=== PATIENT | female | born 1990 | race Caucasian/White ===

== ENCOUNTER 2022-03-26 10:49 | Outpatient (CLI) | payer OTHER, SELFPAY ==
[2022-03-26 13:09] LABS: Cholesterol* 215 mg/dL (90-199); HDL Cholesterol* 62 mg/dL (>=50); LDL Cholesterol Calculated 132 mg/dL (<100); Triglycerides* 103 mg/dL (40-149)
[2022-03-26 13:38] LABS: TSH With Reflex to FT4* 0.521 uIU/mL (0.270-4.200)
== END 2022-03-26 10:50 | disposition home or self-care (01) ==
PROVIDERS: Visit Provider Registered Nurse
DX: Z01.419 Encounter for gynecological examination (general) (routine) without abnormal findings (principal); N92.0 Excessive and frequent menstruation with regular cycle; Z13.6 Encounter for screening for cardiovascular disorders
CPT/HCPCS: 80061; 84443

== ENCOUNTER 2022-04-11 09:52 | Outpatient (CLI) | payer OTHER, SELFPAY ==
--- NOTE | 2022-04-11 10:15 | CRLHL7_ITS ---
For Patients: As a result of the Century Cures Act, medical imaging exams and procedure reports are released immediately into your electronic medical record. You may view this report before your referring provider. If you have questions, please contact your health care provider. INDICATION: EXCESSIVE AND FREQUENT MENSTRUATION COMPARISON: none TECHNIQUE: 2D medina scale and color Doppler images were acquired of the pelvis using a transabdominal and transvaginal approach. FINDINGS: Sonographic images demonstrate a normal size and smooth outer contour of the uterus. Uterus measures 8.8 cm in length by 4.2 cm in AP diameter by 5.0 cm in transverse dimension. The myometrium has a normal uniform echotexture. The endometrial lining appears normal and measures 6 mm in composite thickness. The right ovary measures 2.8 x 2.1 x 2.0 cm in size and the left ovary measures 3.1 x 2.3 x 2.2 cm. Incidental dominant follicle left ovary. The ovaries demonstrate normal arterial and venous blood flow on color Doppler analysis. There are no suspicious fluid collections within the cul-de-sac. IMPRESSION: Normal pelvic ultrasound. Dictated by Russel Boss MD @ 04/11/2022 11:36:42 AM (Electronically Signed)
== END 2022-04-11 09:53 | disposition home or self-care (01) ==
LOC: US 09:53
PROVIDERS: Visit Provider Registered Nurse
DX: N92.0 Excessive and frequent menstruation with regular cycle (principal)
CPT/HCPCS: 76830; 76856

== ENCOUNTER 2023-12-02 09:02 | Outpatient (CLI) | payer OTHER, SELFPAY ==
--- NOTE | 2023-12-02 09:15 | US_ITS ---
Patient: KANDY ARDON Facility:?[facility] Patient ID:?[id number] Site Patient ID:?[id number]. Site :?[id number] Study:?US-OB Pelvis TV OB<14wks-12/02/2023 9:45:41 AM Ordering Physician:?Bobbi Patel Final Report: INDICATION: First trimester scan, establish dates. COMPARISON: None. TECHNIQUE: Real-time medina-scale imaging of the pelvis was performed. FINDINGS: Sonographic imaging demonstrates a single living intrauterine gestation. The embryo demonstrates a regular cardiac rate measuring 161 beats per minute. The embryo`s crown-rump length measurement of 1.9 cm corresponds to a gestational age of 8 weeks 3 days with a sonographic due date of 07/10/2024. There is a normal-appearing yolk sac. There are no gross abnormalities noted within the embryo at this early state of development. The gestational sac has a normal appearance. There is no evidence of a perigestational hemorrhage. The amount of fluid within the sac appears appropriate for gestational age. The cervix is closed. The myometrium appears normal. The ovaries are of normal size. Corpus luteal cyst left ovary. There are no suspicious fluid collections noted in the cul-de-sac. IMPRESSION: Normal first trimester OB ultrasound exam. Gestational age calculated at 8 weeks 3 days with a sonographic due date of 07/10/2024. Dictated by Russel Boss MD @ 12/02/2023 12:51:01 PM Signed by:?Russel Boss MD @12/02/2023 12:51:01 PM (Electronic Signature)
== END 2023-12-02 09:03 | disposition home or self-care (01) ==
LOC: US 09:04
PROVIDERS: Visit Provider Registered Nurse
DX: Z34.91 Encounter for supervision of normal pregnancy, unspecified, first trimester (principal); Z3A.08 8 weeks gestation of pregnancy
CPT/HCPCS: 76817

== ENCOUNTER 2023-12-02 10:15 | Outpatient (CLI) | payer OTHER, SELFPAY ==
[2023-12-02 13:20] LABS: Chlamydia DNA Amplified* NOT DETECTED (No Detected); GC DNA Amplified* NOT DETECTED (No Detected)
== END 2023-12-02 10:16 | disposition home or self-care (01) ==
PROVIDERS: Visit Provider Registered Nurse
DX: Z34.91 Encounter for supervision of normal pregnancy, unspecified, first trimester (principal)
CPT/HCPCS: 82565; 82570; 84156; 84450; 84460; 84520; 86592; 86703; 86704; 86706; 86762; 86787; 86803; 86850; 86900; 86901; 87086; 87340; 87491; 87591

== ENCOUNTER 2023-12-07 05:30 | Outpatient (CLI) | payer OTHER, SELFPAY | END 2023-12-07 05:31 | disposition home or self-care (01) | LOC: NFLDREF 12-09 10:38 | PROVIDERS: Visit Provider Registered Nurse | DX: Z34.01 Encounter for supervision of normal first pregnancy, first trimester (principal) | CPT/HCPCS: 82570; 84156 ==

== ENCOUNTER 2023-12-30 09:51 | Outpatient (CLI) | payer OTHER, SELFPAY | END 2023-12-30 09:52 | disposition home or self-care (01) | PROVIDERS: Visit Provider Registered Nurse | DX: O26.891 Other specified pregnancy related conditions, first trimester (principal); Z3A.13 13 weeks gestation of pregnancy; R79.89 Other specified abnormal findings of blood chemistry | CPT/HCPCS: 84450; 84460 ==

== ENCOUNTER 2024-04-13 08:58 | Outpatient (CLI) | payer OTHER, SELFPAY | END 2024-04-13 08:59 | disposition home or self-care (01) | LOC: NFLDREF 08:59 | PROVIDERS: Visit Provider Obstetrics & Gynecology | DX: Z34.01 Encounter for supervision of normal first pregnancy, first trimester (principal); Z67.41 Type O blood, Rh negative | CPT/HCPCS: 86592; 86850; J2791 ==

== ENCOUNTER 2024-06-08 10:13 | Outpatient (CLI) | payer OTHER, SELFPAY ==
[2024-06-09 11:57] LABS: Strep B DNA Probe POSITIVE (Negative)
[2024-06-09 12:13] LABS: Strep B Susceptibility Needed? No
== END 2024-06-08 10:14 | disposition home or self-care (01) ==
LOC: NFLDREF 10:13
PROVIDERS: Visit Provider Obstetrics & Gynecology
DX: Z34.93 Encounter for supervision of normal pregnancy, unspecified, third trimester (principal); Z3A.36 36 weeks gestation of pregnancy
CPT/HCPCS: 87081; 87653

== ENCOUNTER 2024-07-11 15:23 | Inpatient (IN) | payer OTHER, SELFPAY ==
[2024-07-11] VITALS (9 sets, daily range): BP systolic 141–165; BP diastolic 79–89; PULSE 73–92; RESP 16; TEMP 36.8–36.9; O2SAT 98–99; BMI 42.1
[2024-07-11 16:47] LABS: Basophils Percent Auto 0.1 % (0.0-3.0); Eosinophils Percent Auto 1.1 % (0.0-7.0); Hematocrit 34.4 % (33.0-51.0); Hemoglobin* 11.7 gm/dL (12.0-16.0); Immature Granulocytes Pct Auto 0.2 %; Lymphocytes Percent Auto 15.8 % (20-44); Mean Corpuscular HGB Conc 34 gm/dL (32-36); Mean Corpuscular Hemoglobin 29 pg (26-34); Mean Corpuscular Volume 86 fL (80-100); Monocytes Percent Auto 6.2 % (0.0-11.0); Neutrophils Percent Auto 76.6 % (42.0-72.0); Platelet Count* 298 K/uL (140-440); RDW Coefficient of Variation % 13.7 % (11.5-15.5); Red Blood Count 3.98 m/uL (4.00-5.20); White Blood Count* 13.97 K/uL (4.50-11.00)
[2024-07-11 16:56] LABS: Slide Review Reflex No
[2024-07-11 17:17] LABS: Aspartate Amino Transferase* 21 U/L (12-35); Blood Urea Nitrogen* 8 mg/dL (5-24); Creatinine* 0.4 mg/dL (0.5-1.5); Est. Creatinine Clearance* 189.08; Estimated Glomerular Filt Rate 131 ml/min
[2024-07-11] MEDS: miSOPROStoL 25 MCG/0.25 TABLET VAGINAL ×3 (17:18→23:29)
[2024-07-11 17:33] LABS: Alanine Aminotransferase* 11 U/L (4-35)
--- NOTE | 2024-07-11 18:04 | P.LDBA_ITS ---
Subjective History of Present Illness Time Seen by Provider: 15:50 Date Seen: 07/11/24 Narrative: Patient is being admitted to Labor and Delivery for elective induction of labor. She is a 34 year old at 40 5/7 weeks gestation. Her full history and physical was dictated by Dr. Bhat on 06/15/24. Please see this for details. She feels well today. She has been feeling occasional irregular contractions. Her fetus is active. Specific Issues/Plans G 1 P 0 Spouse: Ishmael Girl: Alyssa 1. Advanced maternal age NIPT normal, XX Level 2 ultrasound at 20 weeks 2. Tobacco use (quit at 28 weeks!). Congratulated her on decreasing. Reviewed risks of tobacco use in . Encouraged her to continue to decrease and quit. To notify us if she needs assistance with this. * As of 16 weeks, 2 cigs / day * Quit as of april!!! 3. Recommend low-dose aspirin starting at 12 weeks to reduce risk of preeclampsia due to BMI and primip. 4. Rh negative Rhogam: 04/13/2024 Covid: Completed initial vaccine, no boosters. Recommended. Declined. Tdap: 04/27/24 RSV: 06/08/24 Flu: Declines. GBS: Positive H&P: Dr. Bhat on 06/15 Ultrasound: * Level 2 ultrasound on 02/10/2024: EFW 43rd percentile, AC 55th percentile. Anterior placenta, no previa, greater than 2 cm from the internal os. Three- vessel cord. MVP 4.9 cm. Pearson intrauterine at 18 weeks 3 days gestational age. There is an echogenic intracardiac focus seen the left ventricle. Otherwise, none of the anomalies commonly detected by ultrasound were evident. [facility] did not recommend any further evaluation for the echogenic intracardiac focus in the setting of normal ultrasound and low risk cell free DNA testing. Repeat ultrasound in 3 weeks for re-evaluation of growth and anatomy due to suboptimal views. * Follow-up ultrasound completed on 03/02/2024: Remaining anatomic survey was completed, no anomalies commonly detected by ultrasound were identif ied within the limits of ultrasound. Normal growth. Normal amniotic fluid. EFW: 84th percentile, single deepest pocket of amniotic fluid 4.6 cm. OB - Problem Based A/P Additional Plan (1) Advanced maternal age, 1st : Status: Acute (2) Encounter for induction of labor: Status: Acute Delivery/Labor/Induction Plan Plan: induction Induction method: per misoprostol protocol OB Result Labs Blood Type: 0 (-) negative Rubella: immune RPR/VDLR: nonreactive GBS Status: positive HBsAG: negative OB Exam Physical Exam Vital signs: Temp Pulse BP Pulse Ox 98.3 F 82 141/83 H 99 07/11/24 15:43 07/11/24 17:31 07/11/24 17:31 07/11/24 15:48 Narrative: General appearance: Alert, cooperative white female in no acute distress Detailed Labor and Delivery Exam Patient Gravid: Yes Dilation (cm): 1 Effacement (%): 0 Cervix position: mid Consistency: firm Contraction Frequency: Occasional Contraction intensity: Mild Fetus (Single) Station: -3 Amniotic Membrane Status: intact Heart Rate Baseline: 130 Monitor Accelerations: Present Monitor Decelerations: None Sausage Canner Variability: Moderate (6-25)
[2024-07-11 18:05] LABS: Total Protein Urine 15 mg/dL
[2024-07-11 18:06] LABS: Creatinine Urine 37.8 mg/dL
[2024-07-11] MEDS: LABETALOL HCL 5 MG/ML inj IVP (23:48)
[2024-07-11] MEDS: LACTATED RINGERS 1000 ML 1,000 ML 75 ML IV (23:56)
[2024-07-11] MEDS: MAGNESIUM IV 4 GM/100 ML PIGGYBACK IVPB (23:56)
[2024-07-12] VITALS (89 sets, daily range): BP systolic 125–162; BP diastolic 65–91; PULSE 66–96; RESP 14–18; TEMP 36.5–36.9; O2SAT 98–100
[2024-07-12] MEDS: MAGNESIUM Infusion 40 GM/1,000 ML IV.SOLN IVPB ×2 (00:35→20:08)
[2024-07-12] MEDS: miSOPROStoL 25 MCG/0.25 TABLET VAGINAL ×2 (02:29→05:21)
[2024-07-12 06:26] LABS: Hematocrit 35.3 % (33.0-51.0); Hemoglobin* 12.1 gm/dL (12.0-16.0); Mean Corpuscular HGB Conc 34 gm/dL (32-36); Mean Corpuscular Hemoglobin 30 pg (26-34); Mean Corpuscular Volume 87 fL (80-100); Platelet Count* 327 K/uL (140-440); Red Blood Count 4.04 m/uL (4.00-5.20); White Blood Count* 13.86 K/uL (4.50-11.00)
[2024-07-12 06:29] LABS: Slide Review Reflex No
[2024-07-12 06:53] LABS: Creatinine* 0.5 mg/dL (0.5-1.5); Est. Creatinine Clearance* 151.26; Estimated Glomerular Filt Rate 125 ml/min
[2024-07-12 06:54] LABS: Alanine Aminotransferase* 10 U/L (4-35); Aspartate Amino Transferase* 20 U/L (12-35); Blood Urea Nitrogen* 5 mg/dL (5-24)
[2024-07-12 07:04] LABS: Magnesium* 4.3 mg/dL (1.5-2.6)
[2024-07-12] MEDS: OXYTOCIN 30 unit/500 ML in NS 30 UNIT/500 ML BAG IVPB (09:26)
[2024-07-12 12:13] LABS: Hematocrit 36.7 % (33.0-51.0); Hemoglobin* 12.6 gm/dL (12.0-16.0); Mean Corpuscular HGB Conc 34 gm/dL (32-36); Mean Corpuscular Hemoglobin 30 pg (26-34); Mean Corpuscular Volume 87 fL (80-100); Platelet Count* 389 K/uL (140-440); Red Blood Count 4.22 m/uL (4.00-5.20); White Blood Count* 16.47 K/uL (4.50-11.00)
[2024-07-12 12:17] LABS: Slide Review Reflex No
[2024-07-12] MEDS: AMPICILLIN 2 GM in 0.9 % SODIUM CHLORIDE Mini-bag 100 ML IVPB (12:44)
[2024-07-12] MEDS: LACTATED RINGERS 1000 ML 1,000 ML 75 ML IV ×2 (13:37→19:08)
[2024-07-12 15:07] LABS: Alanine Aminotransferase* 20 U/L (4-35); Aspartate Amino Transferase* 35 U/L (12-35); Blood Urea Nitrogen* 6 mg/dL (5-24); Creatinine* 0.7 mg/dL (0.5-1.5); Est. Creatinine Clearance* 108.04; Estimated Glomerular Filt Rate 115 ml/min
[2024-07-12] MEDS: AMPICILLIN 1 GM in 0.9 % SODIUM CHLORIDE Mini-bag 100 ML IVPB ×2 (16:42→20:42)
[2024-07-12 18:27] LABS: Hematocrit 37.7 % (33.0-51.0); Hemoglobin* 12.7 gm/dL (12.0-16.0); Mean Corpuscular HGB Conc 34 gm/dL (32-36); Mean Corpuscular Hemoglobin 29 pg (26-34); Mean Corpuscular Volume 87 fL (80-100); Platelet Count* 370 K/uL (140-440); Red Blood Count 4.33 m/uL (4.00-5.20); White Blood Count* 20.56 K/uL (4.50-11.00)
--- NOTE | 2024-07-12 18:35 | PM.OBPNL ---
Subjective Time Seen by Provider: 09:00 Date Seen: 07/12/24 Narrative: Simran has had several doses of vaginal misoprostol overnight. She has no complaints. Objective Exam: Gen - NAD Abd - Soft, NT, gravid Cervical exam - 1 / 70 / -1 / midposition / firm Vital Signs: Last Vital Signs Temp 98.1 F 07/12/24 18:00 Pulse 75 07/12/24 17:01 Resp 18 07/12/24 18:00 BP 140/83 H 07/12/24 17:01 Pulse Ox 99 07/12/24 17:00 Comments: tracing: Baseline 125 / accels present / no decels / moderate variability. Irregular contractions Contractions Contraction intensity: Mild Assessment Station: -3 Status: Category l Heart Rate Baseline: 125 Monitor Accelerations: Present Monitor Decelerations: None Tracing Comments: Category I GBS positive Labor Progress: Less unfavorable than last night, but cervix dilated to 1 cm at this time Maternal Status: Preeclampsia with severe features based on BP criteria. Maintained on mag sulfate. HELLP labs normal. Plan Plan: Cook catheter placed using asceptic technique; intrauterine and vaginal balloons inflated to 60 cc. Begin pitocin infusion at 1 mU / min, increase every 30 minutes Begin ampicillin for GBS prophylaxis Continuous monitoring HELLP labs Q 6 hours Continue mag influsion
[2024-07-12 18:40] LABS: Slide Review Reflex No
--- NOTE | 2024-07-12 18:42 | PM.OBPNL ---
Subjective Time Seen by Provider: 17:45 Date Seen: 07/12/24 Narrative: Simran just had the Cook catheter fall out. I Objective Exam: Gen - NAD Cervix - 3 / 90 / -1 / anterior / moderate AROM for blood-tinged fluid Vital Signs: Last Vital Signs Temp 98.1 F 07/12/24 18:00 Pulse 75 07/12/24 17:01 Resp 18 07/12/24 18:00 BP 140/83 H 07/12/24 17:01 Pulse Ox 99 07/12/24 17:00 Comments: tracing: baseline 125 / accels present / no decels / moderate variability Contractions primarily Q 3 minutes Contractions Contraction intensity: Mild Assessment Station: -3 Status: Category l Heart Rate Baseline: 125 Monitor Accelerations: Present Monitor Decelerations: None Tracing Comments: Category I GBS + Labor Progress: Now favorable cervix. Maternal Status: Stable BP on magnesium sulfate. Stable HELLP labs Plan Plan: continue pitocin augmentation Epidural as desired Continuous monitoring Continue ampicillin Continue mag sulfate influsion Continue serial HELLP labs
[2024-07-12 18:49] LABS: Magnesium* 5.1 mg/dL (1.5-2.6)
[2024-07-12] MEDS: ROPIVACAINE 0.2% 100 ml 100 ML 12 MG EPIDURAL (19:31)
[2024-07-12] MEDS: BUPIVACAINE 0.25% PF 10 ML 10 ML ML EPIDURAL (19:32)
[2024-07-12 19:34] LABS: Alanine Aminotransferase* 19 U/L (4-35); Aspartate Amino Transferase* 40 U/L (12-35); Blood Urea Nitrogen* 6 mg/dL (5-24); Creatinine* 0.5 mg/dL (0.5-1.5); Est. Creatinine Clearance* 151.26; Estimated Glomerular Filt Rate 125 ml/min
[2024-07-12 19:36] LABS: Magnesium* 5.4 mg/dL (1.5-2.6)
--- NOTE | 2024-07-12 19:40 | P.ANBPRC_ITS ---
[facility] Medical History Motion sickness ?T75.3XXA - Motion sickness, initial encounter (ICD-10) Nicotine use ?Z72.0 - Tobacco use (ICD-10) Menorrhagia ?N92.0 - Excessive and frequent menstruation with regular cycle (ICD-10) History of abnormal cervical Papanicolaou smear (2013) ?Z87.42 - Personal history of other diseases of the female genital tract (ICD-10) Surgical History History of third molar tooth extraction ?K08.409 - Partial loss of teeth, unspecified cause, unspecified class (ICD- 10) Family History Father Alcohol abuse High blood pressure Aunt Breast cancer, Onset Age: 49 Maternal Grandmother Gallbladder cancer Maternal Grandfather Leukemia Paternal Grandmother Lung cancer Family/Other Alcohol abuse Mother TIA (transient ischemic attack) 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. . Tobacco use. What is your current living situation?: I presently have a place to live Problems where you live: no known problems In the past 12 months, utilities in danger of being shut off: no In the past 12 mos, have been you worried that your food would run out before you had money to buy more?: never true In the past 12 mos, the food you bought just didn't last and you didn't have money to buy more?: never true Smoking Status: Former smoker How often does anyone, including family, friends and others, physically hurt you : never How often does anyone, including family, friends and others, insult or talk down to you: never How often does anyone, including family, friends and others, threaten you with harm: never How often does anyone, including family, friends and others, scream or curse at you: never Meds Home Medications and Allergies Home Medications ?Medication ?Instructions ?Recorded ?Confirmed ?Type ascorbic acid (vitamin C) 1,000 mg 1 g PO Q6H 12/02/23 07/11/24 History capsule calcium 600 mg (as cap PO 12/02/23 07/06/24 History carbonate)-vitamin D3 12.5 mcg (500 unit) capsule (Calcium with Vit D3) cholecalciferol (vitamin D3) 50 50 mcg PO QDAY 12/02/23 07/11/24 History mcg (2,000 unit) capsule docosahexaenoic acid 200 mg mg PO 12/02/23 07/06/24 History capsule ( DHA) aspirin 81 mg capsule 81 mg PO QDAY 12/30/23 07/11/24 History polysaccharide iron complex 200 mg 200 mg PO QDAY 03/16/24 07/11/24 History iron capsule (EZFE 200) naproxen 500 mg tablet,delayed 500 mg PO BID PRN 07/06/24 07/11/24 History release Allergies Allergy/AdvReac Type Severity Reaction Status Date / Time hydrocodone (From [place]) AdvReac Intermediate n/v Verified 07/06/24 09:11 Results Labs Labs: Laboratory Results - last 24 hr 07/12/24 07/12/24 07/12/24 06:11 06:11 06:11 WBC 13.86 H RBC 4.04 Hgb 12.1 Hct 35.3 MCV 87 MCH 30 MCHC 34 Plt Count 327 BUN Cancelled 5 Creatinine Cancelled 0.5 Estimated Creat Clear Cancelled Estimated GFR Magnesium AST ALT 07/12/24 07/12/24 07/12/24 06:11 06:11 06:11 WBC RBC Hgb Hct MCV MCH MCHC Plt Count BUN Creatinine Estimated Creat Clear 151.26 Estimated GFR Cancelled 125 Magnesium 4.3 H* Cancelled AST Cancelled ALT 07/12/24 07/12/24 07/12/24 06:11 06:11 12:02 WBC 16.47 H RBC 4.22 Hgb 12.6 Hct 36.7 MCV 87 MCH 30 MCHC 34 Plt Count 389 BUN 6 Creatinine 0.7 Estimated Creat Clear 108.04 Estimated GFR 115 Magnesium 5.1 H* AST 20 35 ALT Cancelled 10 20 07/12/24 18:15 WBC 20.56 H RBC 4.33 Hgb 12.7 Hct 37.7 MCV 87 MCH 29 MCHC 34 Plt Count 370 BUN 6 Creatinine 0.5 Estimated Creat Clear 151.26 Estimated GFR 125 Magnesium 5.4 H* AST 40 H ALT 19 Vital Signs Vital Signs: Last Vital Signs Temp 98.5 F 07/12/24 19:28 Pulse 77 07/12/24 19:40 Resp 18 07/12/24 18:00 BP 155/73 H 07/12/24 19:40 Pulse Ox 100 07/12/24 19:37 Weight: 120.293 kg Height: 170.18 cm Anesthesia Procedures Epidural Insertion Patient Location: OB Start Time: 18:45 Stop Time: 19:41 Start Date: 07/12/24 Stop Date: 07/12/24 Reason for Block: procedure for pain Patient Position: sitting Performed By: Ajit Caballero Preanesthetic Checklist: IV checked, risks and benefits discussed, monitors and equipment checked, pre-op evaluation, timeout performed and anesthesia consent Prep: chlorhexidine gluconate Monitoring: blood pressure monitoring, continuous pulse oximetry and heart rate Approach: midline Vertebral Space: lumbar (1-5) Epidural Technique: KESHA saline Needle Type: Tuohy needle Injection Technique: continuous catheter Needle gauge: 17 Needle Length (cm): 10 cm Needle Insertion Depth (cm): 6 Catheter Gauge: 19 Catheter Type: multi-orifice Catheter at skin depth (cm): 12 Test Dose Result: negative (Heme aspirated, HR change of 20 points, lightheaded with 1st epidural placement. Catheter removed. Pt symptoms resolved before a new epidural was placed. No heme and negative test dose with 2nd epidural. ) and lidocaine 1.5% with epinephrine 1 to 200,000
[2024-07-13] VITALS (56 sets, daily range): BP systolic 113–173; BP diastolic 67–94; PULSE 75–105; RESP 16–18; TEMP 36.6–37.2; O2SAT 96–100
[2024-07-13] MEDS: AMPICILLIN 1 GM in 0.9 % SODIUM CHLORIDE Mini-bag 100 ML IVPB ×2 (01:16→05:15)
[2024-07-13 01:22] LABS: Hematocrit 36.1 % (33.0-51.0); Hemoglobin* 12.1 gm/dL (12.0-16.0); Mean Corpuscular HGB Conc 34 gm/dL (32-36); Mean Corpuscular Hemoglobin 29 pg (26-34); Mean Corpuscular Volume 88 fL (80-100); Platelet Count* 319 K/uL (140-440); Red Blood Count 4.11 m/uL (4.00-5.20)
[2024-07-13 01:29] LABS: Slide Review Reflex No
[2024-07-13 01:38] LABS: Alanine Aminotransferase* 16 U/L (4-35); Aspartate Amino Transferase* 31 U/L (12-35); Blood Urea Nitrogen* 8 mg/dL (5-24); Creatinine* 0.7 mg/dL (0.5-1.5); Est. Creatinine Clearance* 108.04; Estimated Glomerular Filt Rate 115 ml/min
[2024-07-13 03:05] LABS: Magnesium* 6.2 mg/dL (1.5-2.6)
[2024-07-13] MEDS: ROPIVACAINE 0.2% 100 ml 100 ML 10 MG EPIDURAL (04:30)
[2024-07-13] MEDS: ACETAMINOPHEN 500 MG TABLET 1000 MG PO (04:45)
[2024-07-13 07:41] LABS: Magnesium* 6.4 mg/dL (1.5-2.6)
--- NOTE | 2024-07-13 08:30 | PM.OBPNL ---
Subjective Time Seen by Provider: 07:30 Date Seen: 07/13/24 Narrative: Simran is a 34yo at 41w0d GA who was admitted for elective IOL. Hospital course notable for new diagnosis of preE with SF (severe range BP requiring treatment), where magnesium sulfate has been ongoing. Serial HELLP labs have remained within normal limits, no long acting antihypertensive regimen has been required. IOL course has included cytotec, cook catheter, pitocin and AROM. Last check at 0530 was 9cm. Simran affirms the above history. She is feeling woozy from magnesium, but denies headache, vision changes or RUQ pain. Pain is well controleld with epidural. Objective Exam: General: Alert and oriented, in no acute distress Psych: Appropriate mood and affect Abdomen: Gravid. Non-tender. Cervix: 10/100/+2, MICHELL. FHR: Category 1: Baseline 130bpm, moderate variability, accelerations present. No decelerations at this time, previously there were periods of intermittent to recurrent variables or lates. Mather: [place] q3m per RN/patient report. These are not readily apparent by toco. Vital Signs: Last Vital Signs Temp 98.4 F 07/13/24 05:39 Pulse 85 07/13/24 08:03 Resp 16 07/13/24 05:39 BP 148/73 H 07/13/24 08:03 Pulse Ox 100 07/12/24 20:52 Contractions Contraction intensity: Mild Assessment Station: -3 Status: Category l Heart Rate Baseline: 125 Monitor Accelerations: Present Monitor Decelerations: None Plan Plan: - Initiate maternal expulsive efforts - Modify pitocin titration (2mu/min at this time) pending contraction frequency - Remove miller catheter - BT O negative, plan cord blood at time of delivery - GBS positive, adequately treated with ampicillin
[2024-07-13] MEDS: LACTATED RINGERS 1000 ML 1,000 ML 75 ML IV ×2 (09:13→23:57)
[2024-07-13] MEDS: LABETALOL HCL 5 MG/ML inj IVP (10:47)
--- NOTE | 2024-07-13 12:21 | W.PM.VAGDEL1 ---
Procedure Delivery date: 07/13/24 Procedure Done: Global Procedure Details: Normal spontaneous vaginal delivery Vaginal and right labial laceration repair Events: Pre-Eclampsia, Labor Induction, AMA and Other (Late term gestation, obesity) Intrapartal Events: Labor Induction Delivery augmentation: rupture of membranes and pitocin Delivery monitor: external FHT Route of delivery: Laceration description: Labial (R labial and minor vaginal lacerations) Delivery repair: Vicryl (3-0 vicryl for vaginal laceration, 4-0 vicryl for right labial laceration) Estimated blood loss (mL): 125 Anesthesia type: Epidural Disposition: floor Complications: None Narrative: Gina is a 34yo at 41w0d GA who was admitted for elective IOL on 07/10/24. Throughout her induction, she developed preeclampsia with severe features. was otherwise complicated by late term gestation, AMA, obesity. heart tones on admission were category 1. Her labor was induced with Cytotec then Cook catheter and epidural was utilized for pain management. She was augmented with Pitocin. Status of bag of canela: AROM performed with return of blood-tinged fluid with thin meconium noted later. heart tones during active labor were category 1 and 2. She was complete at 0734 and started pushing at 0801. She made excellent descent throughout the second stage of labor, and had a normal spontaneous vaginal delivery at 1013. heart tones during second stage of labor were category 2 for intermittent variable decelerations with appropriate improvement to baseline between pushing efforts. Maternal repositioning was utilized throughout the 2nd stage to optimize heart tone. Baby delivered OA, restituted WENDIE and the anterior and posterior shoulders delivered without difficulty. Nuchal cord: None. The cord was clamped and cut after delayed cord clamping. Active management of the third stage occurred with IV pitocin and gentle cord traction and the placenta delivered spontaneous and intact at 1020. Cord gases sent: no Cord blood sent for infant ABO: yes details: - Liveborn female fetus at 1013 - weight 3130g - APGARs were 7 and 9 at 1 and 5 minutes respectively Perineum and vagina were inspected, and the following lacerations were noted: Minor vaginal laceration and right labial laceration. Repair was completed in the usual fashion with running/locking 3-0 Vicryl for the vaginal laceration. The right labial anatomy was 1st reapproximated with 2 interrupted sutures with 4-0 Vicryl. The skin was then closed in a running subcuticular fashion with 4-0 Vicryl. Repair was completed under existing epidural analgesia. Excellent hemostasis was noted. The following counts were correct: sponges, needles, instruments. Mother and infant in stable condition following the . Infant Gender: Female total score - 1 minute: 7 total score - 5 minute: 9
[2024-07-13] MEDS: IBUPROFEN 600 MG TABLET PO ×2 (13:26→20:16)
[2024-07-13] MEDS: NIFEdipine 30 MG TAB.ER.24 PO (14:00)
[2024-07-13 14:23] LABS: Hematocrit 35.1 % (33.0-51.0); Hemoglobin* 11.8 gm/dL (12.0-16.0); Mean Corpuscular HGB Conc 34 gm/dL (32-36); Mean Corpuscular Hemoglobin 29 pg (26-34); Mean Corpuscular Volume 88 fL (80-100); Platelet Count* 351 K/uL (140-440); Red Blood Count 4.01 m/uL (4.00-5.20)
[2024-07-13 14:30] LABS: Slide Review Reflex No; White Blood Count* 25.28 K/uL (4.50-11.00)
[2024-07-13 14:38] LABS: Alanine Aminotransferase* 28 U/L (4-35); Aspartate Amino Transferase* 49 U/L (12-35); Blood Urea Nitrogen* 7 mg/dL (5-24)
[2024-07-13 15:32] LABS: Creatinine* 0.6 mg/dL (0.5-1.5); Est. Creatinine Clearance* 126.05; Estimated Glomerular Filt Rate 119 ml/min
[2024-07-13 15:39] LABS: Magnesium* 6.3 mg/dL (1.5-2.6)
[2024-07-13] MEDS: MAGNESIUM Infusion 40 GM/1,000 ML IV.SOLN IVPB (16:08)
[2024-07-13] MEDS: ENOXAPARIN 40 MG/0.4 ML INJ SUBCUT (17:52)
[2024-07-13 20:12] LABS: Hemoglobin* 11.3 gm/dL (12.0-16.0); Mean Corpuscular HGB Conc 34 gm/dL (32-36); Mean Corpuscular Hemoglobin 30 pg (26-34); Mean Corpuscular Volume 87 fL (80-100); Platelet Count* 366 K/uL (140-440); Red Blood Count 3.78 m/uL (4.00-5.20)
[2024-07-13 20:20] LABS: Slide Review Reflex No
[2024-07-13 20:34] LABS: Alanine Aminotransferase* 20 U/L (4-35); Aspartate Amino Transferase* 43 U/L (12-35); Blood Urea Nitrogen* 9 mg/dL (5-24); Creatinine* 0.7 mg/dL (0.5-1.5); Est. Creatinine Clearance* 108.04; Estimated Glomerular Filt Rate 115 ml/min
[2024-07-14] VITALS (7 sets, daily range): BP systolic 119–149; BP diastolic 74–81; PULSE 78–92; RESP 14–18; TEMP 36.8; O2SAT 97–98
[2024-07-14 02:02] LABS: Rapid Plasma Reagin (RPR) Non Reactive (Non Reactive)
[2024-07-14 02:03] LABS: Hematocrit 30.6 % (33.0-51.0); Hemoglobin* 10.5 gm/dL (12.0-16.0); Mean Corpuscular HGB Conc 34 gm/dL (32-36); Mean Corpuscular Hemoglobin 30 pg (26-34); Mean Corpuscular Volume 88 fL (80-100); Platelet Count* 302 K/uL (140-440); Red Blood Count 3.49 m/uL (4.00-5.20); White Blood Count* 17.32 K/uL (4.50-11.00)
[2024-07-14 02:04] LABS: Slide Review Reflex No
[2024-07-14 02:24] LABS: Alanine Aminotransferase* 15 U/L (4-35); Aspartate Amino Transferase* 34 U/L (12-35); Creatinine* 0.6 mg/dL (0.5-1.5); Est. Creatinine Clearance* 126.05; Estimated Glomerular Filt Rate 119 ml/min
[2024-07-14 02:25] LABS: Blood Urea Nitrogen* 9 mg/dL (5-24)
[2024-07-14] MEDS: IBUPROFEN 600 MG TABLET PO ×3 (02:32→21:07)
[2024-07-14 07:55] LABS: Hematocrit 30.5 % (33.0-51.0); Hemoglobin* 10.3 gm/dL (12.0-16.0); Mean Corpuscular HGB Conc 34 gm/dL (32-36); Mean Corpuscular Hemoglobin 30 pg (26-34); Mean Corpuscular Volume 88 fL (80-100); Platelet Count* 310 K/uL (140-440); Red Blood Count 3.47 m/uL (4.00-5.20); White Blood Count* 15.03 K/uL (4.50-11.00)
[2024-07-14 07:56] LABS: Slide Review Reflex No
--- NOTE | 2024-07-14 07:56 | PM.OBPNVD1 ---
OB - PN:Subj Subjective Time Seen by Provider: 07:56 Date Seen: 07/14/24 Patient comments OB post-: pain well controlled, tolerating diet and flatus present status: and NICU feeding status: exclusively Narrative: Gina is doing well day 1 from a vaginal delivery. She states her pain is well controlled. She is looking for to having this magnesium off because it is making her feel very groggy. is going well. Her blood pressures have been under good control on nifedipine 30 mg daily. All of her preeclampsia labs have been normal. OB - PN: Obj Exam Physical Exam: Vital signs: Temp Pulse Resp BP Pulse Ox O2 Del Method 98.5 F 91 17 120/74 97 Room Air 07/13/24 20:08 07/13/24 23:58 07/14/24 06:20 07/14/24 06:20 07/13/24 20:08 07/14/24 06:20 Narrative: General: Pleasant, , well groomed woman in no acute distress. Vital signs: Included in her electronic medical record. Heart: Regular rate and rhythm without gallop, rub or murmur. Chest: Clear to auscultation bilaterally. Abdomen: Soft, nontender, nondistended with normal bowel sounds throughout. Fundus is firm at 1 cm below the umbilicus in the midline. Extremities: No pain, 1+ bilateral lower extremity edema to the ankle. OB - PN: Obj Data Labs Labs: Laboratory Results - last 24 hr 07/11/24 07/13/24 07/13/24 16:39 14:16 20:00 WBC 25.28 H* 22.40 H RBC 4.01 3.78 L Hgb 11.8 L 11.3 L Hct 35.1 33.0 MCV 88 87 MCH 29 30 MCHC 34 34 Plt Count 351 366 BUN 7 9 Creatinine 0.6 Cancelled Estimated Creat Clear 126.05 Estimated GFR 119 Magnesium 6.3 H* AST 49 H ALT 28 RPR Screen Non Reactive 07/13/24 07/13/24 07/13/24 20:00 20:00 20:00 WBC RBC Hgb Hct MCV MCH MCHC Plt Count BUN Creatinine 0.7 Estimated Creat Clear Cancelled 108.04 Estimated GFR Cancelled 115 Magnesium AST 43 H ALT 20 RPR Screen 07/14/24 01:55 WBC 17.32 H RBC 3.49 L Hgb 10.5 L Hct 30.6 L MCV 88 MCH 30 MCHC 34 Plt Count 302 BUN 9 Creatinine 0.6 Estimated Creat Clear 126.05 Estimated GFR 119 Magnesium AST 34 ALT 15 RPR Screen OB - PN: A/P Delivery Assessment and Plan (1) Advanced maternal age, 1st : Status: Acute (2) Severe preeclampsia: Status: Acute Plan 1. Discontinue magnesium sulfate 24 hours after delivery. 2. All preeclampsia labs have been normal so will likely not check additional labs after her magnesium is discontinued. 3. Planning discharge home tomorrow. 4. Continue nifedipine ER 30 mg daily for blood pressure control.
[2024-07-14 08:10] LABS: Alanine Aminotransferase* 12 U/L (4-35); Blood Urea Nitrogen* 7 mg/dL (5-24)
[2024-07-14 08:22] LABS: Aspartate Amino Transferase* 27 U/L (12-35)
[2024-07-14 08:27] LABS: Creatinine* 0.6 mg/dL (0.5-1.5); Est. Creatinine Clearance* 126.05; Estimated Glomerular Filt Rate 119 ml/min
[2024-07-14] MEDS: DOCUSATE SODIUM 100 MG CAPSULE PO (08:36)
[2024-07-14] MEDS: NIFEdipine 30 MG TAB.ER.24 PO ×2 (08:36→18:50)
--- NOTE | 2024-07-14 13:21 | PM.ANPOST ---
Post Anesthesia Note Post Anesthesia Note Patient seen: Inpatient Respiratory Status: adequate Cardiovascular Status: adequate Mental Status: baseline Pain: adequate Temp: baseline Anesthetic awareness: N/A Complications: none Follow care: none
[2024-07-14 14:31] LABS: Hematocrit 32.4 % (33.0-51.0); Hemoglobin* 10.8 gm/dL (12.0-16.0); Mean Corpuscular HGB Conc 33 gm/dL (32-36); Mean Corpuscular Hemoglobin 30 pg (26-34); Mean Corpuscular Volume 89 fL (80-100); Platelet Count* 350 K/uL (140-440); Red Blood Count 3.64 m/uL (4.00-5.20)
[2024-07-14 14:36] LABS: Slide Review Reflex No
[2024-07-14 14:46] LABS: Alanine Aminotransferase* 13 U/L (4-35); Aspartate Amino Transferase* 30 U/L (12-35); Blood Urea Nitrogen* 8 mg/dL (5-24)
[2024-07-14 14:54] LABS: Creatinine* 0.6 mg/dL (0.5-1.5); Est. Creatinine Clearance* 126.05; Estimated Glomerular Filt Rate 119 ml/min
[2024-07-14] MEDS: ENOXAPARIN 40 MG/0.4 ML INJ SUBCUT (17:31)
[2024-07-14] MEDS: ACETAMINOPHEN 500 MG TABLET 1000 MG PO (21:07)
[2024-07-15 01:08] VITALS: BP 126/78; PULSE 74; RESP 16; TEMP 36.8; O2SAT 98
[2024-07-15 04:08] VITALS: BP 132/83; PULSE 86; RESP 16; TEMP 36.6; O2SAT 98
[2024-07-15] MEDS: ACETAMINOPHEN 500 MG TABLET 1000 MG PO ×2 (04:09→10:30)
[2024-07-15] MEDS: IBUPROFEN 600 MG TABLET PO ×2 (04:10→10:31)
[2024-07-15 06:30] LABS: Hematocrit 30.5 % (33.0-51.0); Hemoglobin* 10.1 gm/dL (12.0-16.0); Mean Corpuscular HGB Conc 33 gm/dL (32-36); Mean Corpuscular Hemoglobin 29 pg (26-34); Mean Corpuscular Volume 89 fL (80-100); Platelet Count* 336 K/uL (140-440); Red Blood Count 3.43 m/uL (4.00-5.20); Slide Review Reflex No; White Blood Count* 11.19 K/uL (4.50-11.00)
[2024-07-15 07:50] VITALS: BP 127/77; PULSE 76; RESP 16; TEMP 36.6; O2SAT 98
[2024-07-15 08:32] LABS: Aspartate Amino Transferase* 31 U/L (12-35); Creatinine* 0.5 mg/dL (0.5-1.5); Est. Creatinine Clearance* 151.26; Estimated Glomerular Filt Rate 125 ml/min
[2024-07-15 08:33] LABS: Alanine Aminotransferase* 13 U/L (4-35); Blood Urea Nitrogen* 9 mg/dL (5-24)
[2024-07-15] MEDS: NIFEdipine 30 MG TAB.ER.24 PO (09:17)
[2024-07-15] MEDS: DOCUSATE SODIUM 100 MG CAPSULE PO (09:17)
--- NOTE | 2024-07-15 09:26 | P.DS_ITS ---
DS: Providers Provider Time Seen by Provider: 09: Date Seen: 07/15/24 Date of admission: 07/11/24 15:23 Primary care physician: Not a Local Provider Admitting Clinician: Nell Esteban MD Attending Physician on discharge: Nell Esteban MD Date of Discharge: 07/15/24 DS: Diagnosis Discharge Diagnosis (1) Severe preeclampsia: Status: Acute Exam Narrative: Exam Narrative: Physical exam: General: No acute distress Psych: Alert and oriented x4, full affect HEENT: Normocephalic, atraumatic Heart: Regular rate and rhythm, no murmur rub or gallop Lungs: Clear to auscultation bilaterally Abdomen: Normoactive bowel sounds, soft, no tenderness, rebound, or guarding. Uterus 2 cm below umbilicus and firm. Skin: No lesions or rashes Breasts: no nodules or masses, no nipple discharge, no axillary adenopathy Lower extremities: No edema or erythema Pelvic exam: Scant blood on pad Const: Vital Signs, click to edit/add: Vital Signs - 24 hr 07/14/24 10:15 07/14/24 14:11 07/14/24 18:20 Temperature 98.2 F Pulse Rate [Pulse Oximeter] 86 79 92 Respiratory Rate 16 16 16 Blood Pressure [Ri ght Arm] 134/81 127/78 149/79 H Pulse Oximetry 97 98 98 Oxygen Delivery Me thod Room Air Room Air Room Air 07/14/24 21:00 07/15/24 01:08 07/15/24 04:08 Temperature 98.2 F 98.2 F 97.9 F Pulse Rate [Pulse Oximeter] 78 74 86 Respiratory Rate 16 16 16 Blood Pressure [Ri ght Arm] 136/80 126/78 132/83 Pulse Oximetry 98 98 98 Oxygen Delivery Me thod Room Air Room Air Room Air 07/15/24 07:50 Temperature 97.9 F Pulse Rate [Pulse Oximeter] 76 Respiratory Rate 16 Blood Pressure [Ri ght Arm] 127/77 Pulse Oximetry 98 Oxygen Delivery Me thod Room Air OB - DS: Summary Hospital Course Hospital Course: The patient is a 34 year old at 41.0 weeks gestation that was admitted to the Center on 07/11/24 for IOL. She had an uncomplicated vaginal delivery. She delivered a viable female . She is breast feeding. She developed preeclampsia with severe features during her induction. She is now status post 24 hours of magnesium sulfate and an additional 24 hours of monitoring after discontinuation of magnesium. BP well controlled on PO nifedipine XL 30 mg Overnight patient had no complaints. Her pain is well controlled on oral pain medications. She is tolerating a regular diet. She has passed flatus. She is ambulating without difficulty. Lochia is scant. She is urinating without miller. Patient denies chest pain, SOB, n/v, headache, RUQ pain, vision changes, dizziness. PreE labs stable. Stable and appropriate for discharge on PPD#2 with close follow up for BP check. Gender: Female Time Spent with Patient Time attestation: Total time spent providing and/or coordinating discharge services: Discharge Plan Discharge Disposition: Home, Self-Care Date of Admission: 07/11/24 15:23 Attending Provider on Discharge: Kira Bhat Primary Care Provider: Provider,Not a Local Condition: Stable Anticipated Discharge Date/Time: 07/15/24 09:26 Discharge Medications: New Dermoplast (with menthol) 20-0.5 % Aerosol 1 spray topical QID PRN42 Days Qty: 78 1RF acetaminophen 500 mg Tablet 1,000 mg PO Q6H PRN30 Days Qty: 60 0RF calcium carbonate 200 mg calcium (500 mg) Tablet,Chewable 1,000 - 2,000 mg PO Q2H PRN30 Days Qty: 60 0RF docusate sodium 100 mg Capsule 100 mg PO DAILY 30 Days Qty: 30 0RF ibuprofen 600 mg Tablet 600 mg PO Q6H PRN30 Days Qty: 60 0RF Lanolin (HPA) 100 % Cream 1 applic topical Q1H PRNQty: 21 0RF nifedipine 30 mg Tablet Extended Release 24hr 30 mg PO BID 45 Days Qty: 90 0RF simethicone 80 mg Tablet,Chewable 80 - 160 mg PO Q4H PRN (Reason: gas) 30 Days Qty: 60 0RF Continued cholecalciferol (vitamin D3) 50 mcg (2,000 unit) capsule 50 mcg PO QDAY ascorbic acid (vitamin C) 1,000 mg capsule 1 g PO Q6H DHA 200 mg capsule 200 mg PO DAILY calcium carbonate-vitamin D3 [Calcium 600 with Vitamin D3] 600 mg-12.5 mcg (500 unit) capsule 1 cap PO DAILY EZFE 200 200 mg iron capsule 200 mg PO QDAY naproxen 500 mg tablet,delayed release (DR/EC) 500 mg PO BID PRN lorazepam [Ativan] 0.5 mg tablet 0.5 mg PO QDAY PRN (Reason: nausea and vomiting) Qty: 7 0RF Discontinued aspirin 81 mg capsule 81 mg PO QDAY Discharge Orders: Discharge Order (Routine); Ordered 07/15/24 Ordered By: Kira Bhat Patient Education: Preeclampsia and Eclampsia After Delivery (GEN), Vaginal Delivery (DC), OB Over the Counter Medication Information, OB Vaginal/Breast Feeding Additional Instructions: Follow up with provider in 3 to 5 days for a blood pressure check. Activity Level: Activity as Tolerated Activity Detail: Pelvic rest x 6 weeks Follow Up Appointments: Provider,Not a Local [Primary Care Provider] - Forms: MyHealth Info Instructions Discharge Comments: F/u in 3-5 days for blood pressure check for severe pre- eclampsia
== END 2024-07-15 12:56 | disposition home or self-care (01) | DRG 807 ==
PROVIDERS: Obstetrics & Gynecology; Admitting Provider Obstetrics & Gynecology; Visit Provider Obstetrics & Gynecology
DX: O48.0 Post-term pregnancy (principal); Z37.0 Single live birth; O99.334 Smoking (tobacco) complicating childbirth; O14.14 Severe pre-eclampsia complicating childbirth; O70.0 First degree perineal laceration during delivery; O99.824 Streptococcus B carrier state complicating childbirth; F17.210 Nicotine dependence, cigarettes, uncomplicated; O26.893 Other specified pregnancy related conditions, third trimester; Z67.41 Type O blood, Rh negative; Z3A.41 41 weeks gestation of pregnancy
CPT/HCPCS: 01967; 36415; 59200; 82565; 82570; 83735; 84156; 84450; 84460; 84520; 85018; 85025; 85027; 85461; 86592; 86850; 86900; 86901; 88307; A9270; C1726; J0290; J0665; J1650; J2371; J2791; J2795; J3475; J7120

== ENCOUNTER 2024-08-26 15:41 | Outpatient (CLI) | payer OTHER, SELFPAY ==
--- NOTE | 2024-08-26 16:00 | CRLHL7_ITS ---
For Patients: As a result of the Cures Act, medical imaging exams and procedure reports are released immediately into your electronic medical record. You may view this report before your referring provider. If you have questions, please contact your health care provider. INDICATION: bleeding. Delivered approximately 6 weeks ago. TECHNIQUE: Transabdominal and transvaginal pelvic ultrasound. COMPARISON: None. FINDINGS: Uterus measures 9.5 x 4.8 x 6.6 cm. No discrete uterine mass. Endometrial stripe measures 8 mm. There is ill-defined heterogeneous echogenicity of the endometrial stripe with associated vascularity. No endometrial fluid. Right ovary is 3.3 x 1.8 x 2.3 cm. Small cyst or dominant follicle in the right ovary measures 2.3 cm. Right ovary is otherwise within normal limits. Normal-appearing color flow in the right ovary. Right adnexal region is unremarkable. Left ovary is 2.7 x 1.4 x 1.5 cm and is within normal limits. Normal-appearing color flow in the left ovary. The left adnexal region is unremarkable. No pelvic free fluid. IMPRESSION: Mild ill-defined heterogeneous echotexture and vascularity associated with the endometrium, concerning for retained products of conception. No endometrial fluid. Dictated by Jaspreet Levy MD @ 08/26/2024 4:50:58 PM Dictated by: Jaspreet Levy MD @ 08/26/2024 16:51:18 (Electronically Signed)
== END 2024-08-26 15:42 | disposition home or self-care (01) ==
LOC: US 15:41
PROVIDERS: Visit Provider Obstetrics & Gynecology
DX: O72.1 Other immediate postpartum hemorrhage (principal)
CPT/HCPCS: 76830; 76856

== ENCOUNTER 2024-08-30 12:05 | Emergency (ER) | payer OTHER, SELFPAY ==
[2024-08-30 12:15] VITALS: BP 124/80; PULSE 112; RESP 16; TEMP 38.2; O2SAT 97; BMI 35.9
--- NOTE | 2024-08-30 12:33 | ED.FEVER ---
HPI - Fever General Time Seen by Provider: 12:33 Date Seen: 08/30/24 Chief Complaint: Fever Stated Complaint: Infection, 7 weeks Time Seen by Provider: 08/30/24 12:33 Source: patient, RN notes reviewed and old records reviewed Mode of arrival: ambulatory Limitations: no limitations History of Present Illness HPI Narrative: This 34-year-old female is coming into the ER with underlying retained products of conception and developing a fever overnight. She was advised by OB to come in. She was having heavier bleeding and had an ultrasound done on August 26 for significant bleeding about 6 weeks out. This ultrasound showed mild ill-defined heterogeneous echotexture and vascularity associated with endometrium, concerning for retained products of conception. No endometrial fluid. Patient states her bleeding actually stopped Thursday. Last night she had chills, developed body aches today. She is pumped breast milk. She does note some pinkish change of her right breast but no significant pain. She is not feeling any significant abdominal pain. She does have a little brownish vaginal discharge but not odorous. She has had no respiratory symptoms, no sore throat, no cough, no drainage. She states she has been very strict about people coming in the house due to the new baby. Related Data Home Medications ?Medication ?Instructions ?Recorded ?Confirmed ascorbic acid (vitamin C) 1,000 mg 1 g PO Q6H 12/02/23 08/30/24 capsule calcium 600 mg (as 1 cap PO DAILY 12/02/23 08/30/24 carbonate)-vitamin D3 12.5 mcg (500 unit) capsule (Calcium with Vit D3) cholecalciferol (vitamin D3) 50 50 mcg PO QDAY 12/02/23 08/30/24 mcg (2,000 unit) capsule docosahexaenoic acid 200 mg 200 mg PO DAILY 12/02/23 08/30/24 capsule ( DHA) naproxen 500 mg tablet,delayed 500 mg PO BID PRN 07/06/24 08/30/24 release Previous Rx's ?Medication ?Instructions ?Recorded lorazepam 0.5 mg tablet (Ativan) 0.5 mg PO QDAY PRN nausea and 09/16/23 vomiting #7 tabs modified lanolin 100 % topical 1 applic topical Q1H PRN #21 grams 07/15/24 cream (Lanolin (HPA)) nifedipine 30 mg tablet,extended 60 mg (2 x 30 mg) PO BID #180 tabs 08/05/24 release 24 hr drospirenone (contraceptive) 4 mg 4 mg PO QDAY #28 tabs 08/26/24 (28) tablet (Slynd) dicloxacillin 500 mg capsule 500 mg PO QID 7 days #28 caps 08/30/24 Allergies Allergy/AdvReac Type Severity Reaction Status Date / Time hydrocodone (From [place]) AdvReac Intermediate n/v Verified 08/30/24 12:14 Review of Systems Status of ROS Reports: 6 or more systems reviewed and unremarkable except as noted in History and below PFSH [facility] Medical History Motion sickness ?T75.3XXA - Motion sickness, initial encounter (ICD-10) Nicotine use ?Z72.0 - Tobacco use (ICD-10) Menorrhagia ?N92.0 - Excessive and frequent menstruation with regular cycle (ICD-10) History of abnormal cervical Papanicolaou smear (2013) ?Z87.42 - Personal history of other diseases of the female genital tract (ICD-10) Surgical History History of third molar tooth extraction ?K08.409 - Partial loss of teeth, unspecified cause, unspecified class (ICD-10) Family History Father Alcohol abuse High blood pressure Aunt Breast cancer, Onset Age: 49 Maternal Grandmother Gallbladder cancer Maternal Grandfather Leukemia Paternal Grandmother Lung cancer Family/Other Alcohol abuse Mother TIA (transient ischemic attack) 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. . Tobacco use. What is your current living situation?: I presently have a place to live Problems where you live: no known problems In the past 12 months, utilities in danger of being shut off: no In past 12 months, lack of transportation kept you from medical appts, meetings, work, or getting things needed for daily living: no In the past 12 mos, have been you worried that your food would run out before you had money to buy more?: never true In the past 12 mos, the food you bought just didn't last and you didn't have money to buy more?: never true Smoking Status: Former smoker How often do you have a drink containing alcohol: never AUDIT-C Alcohol total score: 0 Non-prescribed substance use: denies use How often does anyone, including family, friends and others, physically hurt you: never How often does anyone, including family, friends and others, insult or talk down to you: never How often does anyone, including family, friends and others, threaten you with harm: never How often does anyone, including family, friends and others, scream or curse at you: never service: No Exam Const Vital Signs, click to edit/add: Vital Signs - 24 hr 08/30/24 12:15 08/30/24 13:06 Temperature 100.7 F H Pulse Rate [Pulse Oximeter] 112 H Respiratory Rate 16 Blood Pressure [Right Upper Arm] 124/80 Pulse Oximetry 97 Oxygen Delivery Method Room Air Room Air This 34-year-old female is alert, interactive, no apparent distress, she is seen in exam room 4. Sclera clear, able speak in complete sentences. Lungs clear come good air entry, wheezing or crackles. No tachypnea noted. CV slightly fast but no murmur, normal S1-S2, no S3-S4. Abdomen is soft, there is no tenderness, no uterine tenderness, rebound or guarding. On her right upper inner breast there was a large swath of pinkish mildly erythematous change, it is warm. It is not extensively tender at this point but is a large portion of this right upper to medial breast is afflicted with pinkish to erythematous change. There is no fluctuance, no palpable mass. Documenting provider has reviewed patient's vital signs: yes Course Course ED Course: Will place an IV, establish blood work, will get blood culture. Have paged out obstetric, will discuss with them to see if they want any further imaging. Did review with Gina that I do think we should check the triple viral swab as influenza in these viruses or so prevalent. Hopefully this is some developing mastitis right breast. Will discuss further with OB. Reevaluation(s) Time of Reevaluation #1: 14:42 Reevaluation #1: Reviewed plan, patient will discharge home at this time. 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 Consultations Consultation #1: Spoke with Dr. Bhat, she will be coming by to evaluate the patient. Initially they were concerned about endometritis given the retained products of conception. Did discuss with her the right breast findings, there may be mastitis. Patient is not having any abdominal pain. She will come see the patient, help plan a course of treatment. All labs are not back at but white blood count is mildly elevated. At this time, she is not requesting repeat imaging. 2:15 p.m.: Dr. Bhat agrees, likely mastitis. Recommends dicloxacillin, outpatient treatment. Patient has follow-up with obstetric 6, she does not feel that D&C is warranted at this time, agrees that there is no evidence for endometritis. Will treat for mastitis and discharge patient to home. Patient is updated and in agreement with plan, happy to be discharging to home. Time: 13:44 Vital Signs Vital signs: Initial Vital Signs Temperature 100.7 F H 08/30/24 12:15 Temperature Source Temporal Artery Scan 08/30/24 12:15 Pulse Rate 112 H 08/30/24 12:15 Pulse Rhythm Regular 08/30/24 12:15 Pulse Strength 3+ Normal 08/30/24 12:15 Respiratory Rate 16 08/30/24 12:15 Blood Pressure 124/80 08/30/24 12:15 Blood Pressure Mean 94 08/30/24 12:15 Blood Pressure Position Sitting 08/30/24 12:15 Pulse Oximetry 97 08/30/24 12:15 Oxygen Delivery Method Room Air 08/30/24 12:15 Vital Signs Temperature 100.7 F H 08/30/24 12:15 Pulse Rate 112 H 08/30/24 12:15 Respiratory Rate 16 08/30/24 12:15 Blood Pressure 124/80 08/30/24 12:15 Pulse Oximetry 97 08/30/24 12:15 Oxygen Delivery Method Room Air 08/30/24 12:15 Temperature 100.7 F H 08/30/24 12:15 Pulse Rate 112 H 08/30/24 12:15 Respiratory Rate 16 08/30/24 12:15 Blood Pressure 124/80 08/30/24 12:15 Pulse Oximetry 97 08/30/24 12:15 Oxygen Delivery Method Room Air 08/30/24 13:06 Medications Administered Medications: Discontinued Medications Generic Name Dose Route Start Last Admin Trade Name Paramjit PRN Reason Stop Dose Admin Sodium Chloride 500 mls @ 500 mls/hr 08/30/24 12:39 08/30/24 13:10 0.9 % Sodium Chloride 500 Ml IV 08/30/24 13:38 500 mls/hr .Q1H ONE Administration MDM - Fever Lab Data Attestation: I reviewed the patient's lab results. Labs: Lab Results 08/30/24 08/30/24 Range/Units 13:03 Unknown WBC 14.58 H (4.50-11.00) K/uL RBC 4.30 (4.00-5.20) m/uL Hgb 12.4 (12.0-16.0) gm/dL Hct 37.4 (33.0-51.0) % MCV 87 (80-100) fL MCH 29 (26-34) pg MCHC 33 (32-36) gm/dL RDW Coeff of Mehdi 14.0 (11.5-15.5) % Plt Count 391 (140-440) K/uL Neut % (Auto) 82.1 H (42.0-72.0) % Lymph % (Auto) 11.1 L (20-44) % [place] % (Auto) 5.1 (0.0-11.0) % Eos % (Auto) 1.3 (0.0-7.0) % Baso % (Auto) 0.3 (0.0-3.0) % Neut # (Auto) 12.00 H (1.7-7.0) K/uL Lymph # (Auto) 1.60 (0.90-2.90) K/uL [place] # (Auto) 0.70 (0.00-0.90) K/UL Eos # (Auto) 0.20 (0.00-0.50) K/uL Baso # (Auto) 0.00 (0.00-0.30) K/uL Abs Immat Gran (auto) 0.00 (0.00-0.30) K/uL Imm/Tot Granulo (auto) 0.1 % Sodium 136 (135-149) mmol/L Potassium 3.7 (3.6-5.1) mmol/L Chloride 105 (96-114) mmol/L BUN 10 (5-24) mg/dL Creatinine 0.7 (0.5-1.5) mg/dL Estimated Creat Clear 108.04 Estimated GFR 115 ml/min Glucose 92 (60-115) mg/dL Lactate 0.7 (0.5-1.9) mmol/L Calcium 9.0 (8.4-10.6) mg/dL Total Bilirubin 0.4 (0.1-1.5) mg/dL AST 21 (12-35) U/L ALT 23 (4-35) U/L Alkaline Phosphatase 111 (40-150) U/L Albumin 4.5 (3.3-5.0) g/dL SARS-CoV-2 (PCR) Negative SARS-CoV-2 (Negative) Influenza Type A (PCR) Negative PCR FLU A (Negative) Influenza Type B (PCR) Negative PCR FLU B (Negative) RSV (PCR) Negative PCR RSV (Negative) Discharge Plan Discharge Clinical Impression: Mastitis Patient Disposition: Home, Self-Care Condition: Stable Instructions: Mastitis (ED) Additional Instructions: Start antibiotics luca and take as prescribed. If unable to take oral antibiotics for any reason, need to follow up. Pump, ice packs. Follow up with OB tomorrow to discuss the retained products of conception. Activity Level: Activity as Tolerated Prescriptions: New dicloxacillin 500 mg capsule 500 mg PO QID 7 Days Qty: 28 0RF No Action cholecalciferol (vitamin D3) 50 mcg (2,000 unit) capsule 50 mcg PO QDAY ascorbic acid (vitamin C) 1,000 mg capsule 1 g PO Q6H DHA 200 mg capsule 200 mg PO DAILY calcium carbonate-vitamin D3 [Calcium 600 with Vitamin D3] 600 mg-12.5 mcg (500 unit) capsule 1 cap PO DAILY Slynd 4 mg (28) tablet 4 mg PO QDAY Qty: 28 11RF naproxen 500 mg tablet,delayed release (DR/EC) 500 mg PO BID PRN Lanolin (HPA) 100 % Cream 1 applic topical Q1H PRNQty: 21 0RF lorazepam [Ativan] 0.5 mg tablet 0.5 mg PO QDAY PRN (Reason: nausea and vomiting) Qty: 7 0RF nifedipine 30 mg tablet extended release 24hr 60 mg PO BID Qty: 180 0RF Follow Up/Referrals: Provider,Not a Local [Non-Staff] - Stand Alone Forms: [employer] Info Instructions
[2024-08-30] MEDS: 0.9 % SODIUM CHLORIDE 500 ML 500 ML IV (13:10)
[2024-08-30 13:14] LABS: Lactate* 0.7 mmol/L (0.5-1.9)
[2024-08-30 13:18] LABS: Basophils Percent Auto 0.3 % (0.0-3.0); Eosinophils Percent Auto 1.3 % (0.0-7.0); Hematocrit* 37.4 % (33.0-51.0); Hemoglobin* 12.4 gm/dL (12.0-16.0); Immature Granulocytes Pct Auto 0.1 %; Lymphocytes Percent Auto 11.1 % (20-44); Mean Corpuscular HGB Conc 33 gm/dL (32-36); Mean Corpuscular Hemoglobin 29 pg (26-34); Mean Corpuscular Volume 87 fL (80-100); Monocytes Percent Auto 5.1 % (0.0-11.0); Neutrophils Percent Auto 82.1 % (42.0-72.0); Platelet Count* 391 K/uL (140-440); White Blood Count* 14.58 K/uL (4.50-11.00)
[2024-08-30 13:21] LABS: Slide Review Reflex No
[2024-08-30 13:33] LABS: Albumin* 4.5 g/dL (3.3-5.0); Chloride* 105 mmol/L (96-114); Potassium* 3.7 mmol/L (3.6-5.1); Sodium* 136 mmol/L (135-149)
[2024-08-30 13:35] LABS: Bilirubin Total* 0.4 mg/dL (0.1-1.5); Creatinine* 0.7 mg/dL (0.5-1.5); Est. Creatinine Clearance* 108.04; Estimated Glomerular Filt Rate 115 ml/min
[2024-08-30 13:36] LABS: Alanine Aminotransferase* 23 U/L (4-35); Alkaline Phosphatase* 111 U/L (40-150); Aspartate Amino Transferase* 21 U/L (12-35); Blood Urea Nitrogen* 10 mg/dL (5-24)
[2024-08-30 13:37] LABS: Glucose* 92 mg/dL (60-115)
[2024-08-30 13:53] LABS: PCR FLU A Negative PCR FLU A (Negative); PCR FLU B Negative PCR FLU B (Negative); PCR RSV Negative PCR RSV (Negative); SARS PCR* Negative SARS-CoV-2 (Negative)
[2024-08-30 14:16] LABS: Anion Gap 10 mEq/L (7-15); Carbon Dioxide* 21 mmol/L (20-32); Total Protein* 7.4 g/dL (6.0-8.3)
[2024-08-30 14:19] LABS: C Reactive Protein* 6.7 mg/dL (0.5-1.0)
[2024-08-30 14:49] VITALS: BP 122/77; PULSE 96; RESP 16; TEMP 38; O2SAT 98
--- OUTSIDE RECORDS SUMMARY | 2024-08-31 14:03 | XMS_ITS | Referral Summary ---
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 Name Role Phone No Ref-Primary, Physician Primary Care Provider Social History Tobacco Use Types Packs/Day Years Used Date Smoking Tobacco: Never Assessed Adolescent Education Answer Date Record ed Getting School Help Needed Not on file 02/09 Estimated Date of Delivery Comme nts Yes 07/10/2024 Based on Ultraso und Sex and Gender Information Value Date Recorded Sex Assigned at Female 01/22/2024 9:49 AM CDT Legal Sex Female 8:55 AM CDT Gender Identity Female 01/22/2024 9:49 AM CDT Sexual Orientation Straight 01/22/2024 9: 49 AM CDT Last Filed Vital Signs Vital Sign Reading Time Taken Comments Blood Pressure 133/80 02/10/2024 8:44 AM CDT Pulse - - Temperature - - Respiratory Rate - - Oxygen Saturation - - Inhaled Oxygen Concentration - - Weight - - Height - - Body Mass Index - - Plan of Treatment Not on file Insurance [facility] CHOICE [facility] CHOICE Care Teams Granite Polisher Machine Relationship Specialty Start Date End Date No Ref-Primary, Physician PCP - General 01/22/24
--- OUTSIDE RECORDS SUMMARY | 2024-08-31 14:04 | XMS_ITS | Clinical Summary ---
Author Organization [facility] Address [address] [place] [id number] Care Team Providers Care Messenger Office Name Role Phone No Ref-Primary, Physician Primary [...] Mass Index - - Plan of Treatment Health Maintenance Due Date Last Done Comments ADVANCE CARE PLANNING 1988 ANNUAL REVIEW OF HM ORDERS 1988 GLUCOSE 1988 YEARLY PREVENTIVE VISIT 1991 HIV SCREENING 2003 HEPATITIS C SCREENING 2006 PAP 2009 MATERNAL SCREENING DISCUSSION 12/13/2023 [facility] (OB) 03/20/2024 COVID-19 Vaccine ( season) 2024 05/21/2021, 04/30/2021 INFLUENZA VACCINE (#1) 2024 , 06/17/2019, 06/28/2018, Additional history exists GROUP B STREP SCREENING 06/12/2024 PHQ-2 (once per calendar year) 2024 DTAP/TDAP/TD IMMUNIZATION (7 - Td or Tdap) 01/28/2029 01/28/2019, 10/26/2000, 10/23/1993, Additional history exists HEPATITIS B IMMUNIZATION Completed 001, 11/27/2000, 10/26/2000 MENINGITIS IMMUNIZATION Completed 03/06/2005 HPV IMMUNIZATION Completed 05/28/2007, , 11/20/2006, Additional history exists Pneumococcal Vaccine: Pediatrics (0 to 5 Years) and At-Risk Patients (6 to 49 Years) Aged Out No longer eligible based on patient's age to complete this topic RSV MONOCLONAL ANTIBODY Aged Out No l onger eligible based on patient's age to complete this topic RSV VACCINE (No Doses Required) Completed Insurance [facility] CHOICE [facility] CHO[facility] Care Teams Messenger Office Relationship Specialty Start Date End Date No Ref-Primary, Physician PCP - General 01/22/24
== END 2024-08-30 14:50 | disposition home or self-care (01) ==
PROVIDERS: Emergency Provider Family Medicine; PCP Family Medicine
DX: N61.0 Mastitis without abscess (principal)
CPT/HCPCS: 36415; 80053; 83605; 85025; 86140; 87040; 87637; 99283; 99284; J7030